=== PATIENT | female | born 1955 | race Caucasian/White ===

== ENCOUNTER → 2021-08-18 19:37 | Outpatient (CLI) | payer MEDICARE, OTHER, SELFPAY | PROVIDERS: Visit Provider Nurse Practitioner Family | DX: U07.1 COVID-19 (principal) | CPT/HCPCS: C9803; U0003; U0005 ==

== ENCOUNTER → 2021-09-14 14:14 | Outpatient (CLI) | payer MEDICARE, SELFPAY ==
[2021-09-14 15:21] LABS: Hemoglobin A1C 5.3 % (4.0-6.0)
[2021-09-14 17:01] LABS: 25-OH Vitamin D, Total 57.6 ng/mL (30-100)
[2021-09-14 18:27] LABS: Blood Urea Nitrogen 12 mg/dl (7-17); Calcium 9.4 mg/dl (8.4-10.2); Carbon Dioxide 25 mmol/L (22.0-30.0); Chloride 104 mmol/L (98-107); Estimated Glomerular Filt Rate 100 ml/min (>60); GFR (African American) 121 ML/MIN (>60); Glucose 92 mg/dl (74-100); Sodium 139 mmol/L (136-145)
[2021-11-05 10:47] LABS: LDL-C 123; LDL-P 1720
[2021-11-05 10:48] LABS: Cholesterol, Total 215; HDL-C 39; LDL Size 20.2; Triglycerides 301
[2021-11-05 10:49] LABS: LP-IR Score 77
== END ==
PROVIDERS: Visit Provider Family Medicine
DX: I10 Essential (primary) hypertension (principal); E78.5 Hyperlipidemia, unspecified; E55.9 Vitamin D deficiency, unspecified; Z79.899 Other long term (current) drug therapy
CPT/HCPCS: 36415; 80048; 82306; 83036; 83704

== ENCOUNTER → 2021-10-07 14:19 | Outpatient (CLI) | payer MEDICARE, SELFPAY ==
[2021-10-07 15:19] LABS: Hemoglobin A1C 5.2 % (4.0-6.0)
[2021-10-07 15:21] LABS: Chol/HDL Ratio 6.2 (1-3.5); Cholesterol 231 mg/dl (140-200); HDL Cholesterol 37 mg/dl (40-60); Triglycerides 348 mg/dl (30-150); VLDL Cholesterol 70 mg/dL (0-40)
[2021-10-07 15:32] LABS: Direct LDL Cholesterol 139.41 mg/dL (100-129)
== END ==
PROVIDERS: PCP Family Medicine; Visit Provider Family Medicine
DX: E78.5 Hyperlipidemia, unspecified (principal); Z79.899 Other long term (current) drug therapy
CPT/HCPCS: 36415; 80061; 83036

== ENCOUNTER 2022-03-30 21:05 | Emergency (ER) | payer MEDICARE, OTHER, SELFPAY ==
[2022-03-30 21:06] VITALS: BP 146/62; PULSE 76; RESP 18; TEMP 36.6; O2SAT 99; BMI 43.0
[2022-03-30 21:14] VITALS: BMI 43.0
--- NOTE | 2022-03-30 21:15 | XR_ITS ---
PROCEDURE INFORMATION: Exam: XR Right Shoulder Exam date and time: 03/30/2022 9:19 PM Age: 67 years old Clinical indication: Injury or trauma; Fall; Blunt trauma (contusions or hematomas); Shoulder; Right TECHNIQUE: Imaging protocol: Radiologic exam of the Right shoulder. Views: 2 or more views. COMPARISON: No relevant prior studies available. FINDINGS: Bones/joints: There is a comminuted fracture of the right humeral head, with mild impaction of the major distal fracture fragment. The distal clavicle, acromion process, and glenoid process appear intact. Soft tissues: There is overlying soft tissue swelling. IMPRESSION: There is an impacted comminuted fracture of the right humeral head with overlying soft tissue swelling.
--- NOTE | 2022-03-30 21:15 | XR_ITS ---
PROCEDURE INFORMATION: Exam: XR Right Elbow Exam date and time: 03/30/2022 9:29 PM Age: 67 years old Clinical indication: Injury or trauma; Fall; Blunt trauma (contusions or hematomas); Elbow; Right TECHNIQUE: Imaging protocol: Radiologic exam of the Right elbow. Views: 1 or 2 views. COMPARISON: CR XR SHOULDER RT MIN 2V 03/30/2022 9:19 PM FINDINGS: Bones/joints: There is a small marginated osseous body identified adjacent to the olecranon process. This could represent a small chip fracture in this location. There is osseous spurring of the olecranon at the insertion of triceps onto the olecranon. The radial head is intact. There is no evidence of fracture of the distal humerus. Soft tissues: Mild soft tissue swelling over the olecranon. IMPRESSION: Findings are compatible with a small chip fracture of the liquor non process with mild overlying soft tissue swelling.
--- NOTE | 2022-03-30 21:55 | [facility].EDUPEXT ---
ED Disposition Clinical Impression: Humeral head fracture Qualifiers: Encounter type: initial encounter Fracture type: closed Laterality: right Qualified Code(s): S42.291A - Other displaced fracture of upper end of right humerus, initial encounter for closed fracture Disposition: Home, Self-Care Condition on Discharge: Good Instructions: DI for Arm Pain Additional Instructions: ice and call pcp and ortho in am Referrals: Caitlin Carpenter [Primary Care Provider] - - Critical Care Critical Care Time: No Attestation: On 03/30/22, the high probability of a clinically significant, sudden or life threatening deterioration of the following system(s) required my full and direct attention, intervention and personal management. The time I documented below is in addition to time spent performing reported procedures but includes the following listed in this critical care notation. Medical Decision Making - Medical Records Medical records reviewed: Yes: I reviewed the patient's medical records. - Jeison Inquiry Pt receiving controlled substance: No Vital Signs: 03/30/22 21:06 03/30/22 22:37 Temperature 97.8 F 97.8 F Temperature Source Oral Oral Pulse Rate 70 Pulse Rate [Right] 76 Respiratory Rate 18 18 Blood Pressure 134/78 Blood Pressure [Right Arm] 146/62 H Blood Pressure Mean [Right Arm] 90 02 Sat by Pulse Oximetry 99 - Lab Data Lab results reviewed: Yes: I reviewed the patient's lab results. Orders (Tests/Meds): ED MEDICATIONS Generic Name Dose Route Start Last Admin Trade Name Freq PRN Reason Stop Dose Admin Sodium Chloride 10 ml 03/30/22 21:52 Sodium Chloride 0.9% 10ml Flush Syringe IV 04/29/22 21:51 NEEDED PRN Maintain IV Site Discontinued Medications Generic Name Dose Route Start Last Admin Trade Name Freq PRN Reason Stop Dose Admin Hydrocodone Bitart/Acetaminophen 1 tab 03/30/22 22:33 03/30/22 22:34 Hydrocodone/Apap 5/325 Mg Tablet PO 03/30/22 22:34 1 tab ONCE ONE Administration Ketorolac Tromethamine 30 mg 03/30/22 22:33 03/30/22 22:34 Ketorolac 30mg/Ml Vial IV 03/30/22 22:34 30 mg ONCE ONE Administration Morphine Sulfate 4 mg 03/30/22 21:52 03/30/22 21:54 Morphine 4mg/Ml Syringe IV 03/30/22 21:53 4 mg ONCE ONE Administration Ondansetron HCl 4 mg 03/30/22 21:52 03/30/22 21:54 Ondansetron 4mg/2ml Vial IV 03/30/22 21:53 4 mg ONCE ONE Administration - Radiology Data #1 Image(s): Shoulder, Elbow Image Reviewed: Yes I have reviewed radiologist's interpretation Preliminary Findings: Abnormal (see report ) Medical Decision Narrative: has acute humeral hd fx Upper Extremity HPI - General Chief Complaint: Extremity Injury, Upper Stated Complaint: Ao 03/30@2030 injured R shouldere elbow Time Seen by Provider: 03/30/22 21:55 Mode of Arrival: Wheelchair Source of Information: Patient, Medical Record Limitations: No Limitations Description of Symptoms (Recalled from ER Triage Doc. by RN): pt states was watering flower and tripped over hose and landed on rt shoulder elbow. pt c/o rt shoulder pain - History of Present Illness HPI narrative: trip type fall with rt shoulder injury MD complaint: injury to: right, shoulder, elbow Other Extremity Injury: Right: elbow, shoulder Other injuries: none Handedness: right Place: home Severity: moderate Context: fall Associated symptoms: denies other symptoms - Related Data Home Medications Medication Instructions Recorded Confirmed citalopram 10 mg tablet 10 mg PO QHS tab 07/05/19 08/18/21 multivitamin,[id number] 1 tab PO DAILY 07/05/19 08/18/21 nifedipine 60 mg tablet,extended 60 mg PO DAILY 07/05/19 08/18/21 release Allergies Allergy/AdvReac Type Severity Reaction Status Date / Time From Clemastine Fumarate Allergy Unknown Uncoded 09/05/17 14:49 From Penicillin V Potassium Allergy Unknown Uncoded 09/05/17 14:49 Penicillin Allergy Unkno
--- NOTE | 2022-03-30 22:03 | PC.NURSE ---
Wound on pt right elbow and left knee cleaned with sterile water and hibiclens
--- NOTE | 2022-03-30 22:03 | PC.NURSE ---
pt medicated for pain per MAR
[2022-03-30 22:37] VITALS: BP 134/78; PULSE 70; RESP 18; TEMP 36.6; O2SAT 99
== END 2022-03-30 22:54 | disposition home or self-care (01) ==
PROVIDERS: Emergency Provider Emergency Medicine; PCP Family Medicine
DX: S42.291A Other displaced fracture of upper end of right humerus, initial encounter for closed fracture (principal); W01.0XXA Fall on same level from slipping, tripping and stumbling without subsequent striking against object, initial encounter; Y93.H2 Activity, gardening and landscaping; Y92.096 Garden or yard of other non-institutional residence as the place of occurrence of the external cause; Z79.899 Other long term (current) drug therapy; Z88.0 Allergy status to penicillin; Z88.8 Allergy status to other drugs, medicaments and biological substances; I10 Essential (primary) hypertension
CPT/HCPCS: 73030; 73070; 96374; 96375; 99284; J2405

== ENCOUNTER 2022-07-29 14:00 | Outpatient (RCR) | payer MEDICARE, OTHER, SELFPAY | END 2022-07-29 14:05 | disposition home or self-care (01) | LOC: OT 14:00 | PROVIDERS: PCP Family Medicine; Visit Provider Orthopaedic Surgery Adult Reconstructive Orthopaedic Surgery | DX: S42.391D Other fracture of shaft of right humerus, subsequent encounter for fracture with routine healing (principal) | CPT/HCPCS: 97010; 97014; 97110; 97140; 97164; 97165; 97530; G0283 ==

== ENCOUNTER → 2023-08-03 09:09 | Outpatient (CLI) | payer MEDICARE, OTHER, SELFPAY ==
[2023-08-03 10:10] LABS: Hemoglobin A1C 5.4 % (4.0-6.0)
[2023-08-03 10:31] LABS: Chloride 105 mmol/L (98-107); Potassium 4.1 mmoL/L (3.5-5.1); Sodium 139 mmol/L (136-145)
[2023-08-03 10:33] LABS: Alanine Aminotransferase 24 U/L (12-78); Aspartate Amino Transferase 31 U/L (14-36); Blood Urea Nitrogen 20 mg/dl (7-17); Estimated Glomerular Filt Rate 83 ml/min (>60); GFR (African American) 100 ML/MIN (>60)
[2023-08-03 10:34] LABS: Albumin Level 4.2 g/dl (3.5-5.0); Albumin/Globulin Ratio 1.4 (1.1-1.8); Alkaline Phosphatase 106 U/L (38-126); Anion Gap 13.1 mEq/L (5-15); Bilirubin,Total 0.2 mg/dl (0.2-1.3); Carbon Dioxide 25 mmol/L (22.0-30.0); Globulin 3.1 g/dL (1.3-3.2); Glucose 94 mg/dl (74-100); Total Protein,Serum 7.3 g/dl (6.3-8.2)
== END ==
PROVIDERS: PCP Family Medicine; Visit Provider Family Medicine
DX: K76.0 Fatty (change of) liver, not elsewhere classified (principal); Z79.899 Other long term (current) drug therapy
CPT/HCPCS: 36415; 80053; 83036